=== PATIENT | female | born 1995 | race Caucasian/White ===

== ENCOUNTER 2017-02-08 20:18 | Emergency (ER) | payer BC ==
[~2017-02-08] VITALS: Ht 170.2 cm; Wt 63.6 kg
[2017-02-08 20:24] VITALS: BP 130/90; TEMP 97.9
[2017-02-08] MEDS ORDERED: VYVANSE50 MG PO (20:28)
[2017-02-08] MEDS ORDERED: LIPITOR 10MG10 MG PO (20:28)
[2017-02-08] MEDS ORDERED: ALDACTONE50 MG PO (20:28)
[2017-02-08] MEDS ORDERED: NORTREL 35 MCG-1 TAB (20:29)
[2017-02-08] MEDS ORDERED: FLEXERIL 1010 MG/TAB PO (22:35)
[2017-02-08 22:59] VITALS: PULSE 77
== END 2017-02-08 23:00 | disposition home or self-care (01) ==
LOC: COL.ER 20:18
DX: R07.9 Chest pain, unspecified (principal); M54.9 Dorsalgia, unspecified; M62.838 Other muscle spasm; F90.9 Attention-deficit hyperactivity disorder, unspecified type; Z98.890 Other specified postprocedural states
CPT/HCPCS: J1170; J1885; J3360